=== PATIENT | female | born 2000 | race Hispanic/Latino ===

== ENCOUNTER 2019-08-22 15:05 | Emergency (ER) | payer OTHER ==
[2019-08-22] MEDS ORDERED: LIDOCAINE 1% MPF 5 ML VIAL ONE (16:18)
[2019-08-22] MEDS ORDERED: BUPIVACAINE 0.5% PF 10 ML VIAL ONE (16:19)
[2019-08-22] MEDS ORDERED: NA CHLORIDE 0.9% 1,000 ML ONE (16:19)
[2019-08-22] MEDS ORDERED: FENTANYL CITR 100 MCG/2 ML ONE (16:19)
[2019-08-22 16:34] LABS: Absolute Lymphocytes (CBC) 1.5 K/uL (0.7-4.9); Basophils % 0.3 % (0-1.3); Hematocrit 40.3 % (36.0-45.0); Lymphocytes % 12.6 % (15.3-44.8); MPV 10.9 fL (7.6-11.3); RBC Red Blood Cell Count 4.43 M/uL (3.86-4.86)
[2019-08-22 16:45] LABS: BUN Blood Urea Nitrogen 10 mg/dL (7-18); Bicarbonate 28 mmol/L (21-32); Glucose Level 94 mg/dL (74-106); Potassium 3.8 mmol/L (3.5-5.1); Sodium Level 141 mmol/L (136-145)
[2019-08-22] MEDS ORDERED: LIDOCAINE 1% W/EPI 1:100,000 MDV 20 ML VIAL ONE ×2 (17:01→17:11)
[2019-08-22] MEDS ORDERED: CLINDAMYCIN 900MG/D5W 900 MG/50 ML IVPB IV ONE (17:03)
[2019-08-22] MEDS ORDERED: MORPHINE 2 MG/ML SYR ONE (17:23)
[2019-08-22] MEDS ORDERED: ONDANSETRON 4 MG/2 ML VIAL ONE (17:23)
[2019-08-22 17:47] LABS: Urine Blood NEGATIVE (NEG); Urine Glucose NEGATIVE (NEG); Urine Protein NEGATIVE (NEG); Urine Specific Gravity 1.025 (1.005-1.030)
[2019-08-22] MEDS ORDERED: SMZ./TMP. 800/160 MG TABLET ONE (18:01)
[2019-08-22] MEDS ORDERED: HYDROCODONE/APAP 5/325 MG TAB ONE (18:02)
--- NOTE | 2019-08-22 18:09 | EDPHYS ---
Physician Documentation [facility] Name: Stephy Carolina Age: 18 yrs Sex: Female : 2000 Arrival Date: 08/22/2019 Time: 15:08 Bed 26 Private MD: ED Physician Dmitry Leonard HPI: 08/21 16:15 This 18 yrs old Female presents to ER via Ambulatory with complaints of cp Abscess. 16:15 pain in coccyx area. cp 16:15 Description: pain, tenderness. Onset: The symptoms/episode began/occurred 2 day(s) ago. cp 16:15 Possible cause(s): abscess. Associated signs and symptoms: Pertinent negatives: cp discharge, drainage, erythema, fever, vomiting. Severity of symptoms: in the emergency department the symptoms are actually worse, markedly. 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 - Social history:: Smoking status: Patient denies any tobacco usage or history of. ROS: 16:20 Skin: Positive for of the coccyx area, pain, Negative for injury. cp 16:20 Eyes: Negative for injury, pain, redness, and discharge. cp 16:20 Constitutional: Negative for body aches, chills, fever, poor PO intake. 16:20 Cardiovascular: Negative for chest pain. 16:20 Respiratory: Negative for cough, shortness of breath, wheezing. 16:20 Abdomen/GI: Negative for abdominal pain, nausea, vomiting, and diarrhea. 16:20 Neuro: Negative for weakness. 16:20 All other systems are negative. Exam: 16:30 Constitutional: The patient appears in no acute distress, alert, awake, non-toxic, well cp developed, well nourished, in obvious pain, uncomfortable. 16:30 Head/Face: Normocephalic, atraumatic. cp 16:30 Eyes: Periorbital structures: appear normal, Conjunctiva: normal, no exudate, no injection, Sclera: no appreciated abnormality, Lids and lashes: appear normal, bilaterally. 16:30 ENT: External ear(s): are unremarkable, Nose: is normal, Mouth: is normal, Posterior pharynx: is normal, airway is patent. 16:30 Chest/axilla: Inspection: normal. 16:30 Cardiovascular: Rate: tachycardic, Rhythm: regular. 16:30 Respiratory: the patient does not display signs of respiratory distress, Respirations: normal, no use of accessory muscles, labored breathing, is not present. 16:30 Abdomen/GI: Exam negative for discomfort, distension, guarding, Inspection: abdomen appears normal. 16:30 Skin: Appearance: normal except for affected area, pain in coccyx area. Vital Signs: 15:37 BP 107 / 77; Pulse 114; Resp 16 S; Temp 98.5(TE); Pulse Ox 100% on R/A; Weight 74.84 kg ca1 (M); Height 5 ft. 6 in. (167.64 cm) (R); 17:15 BP 117 / 68; Pulse 98; Resp 20; Pulse Ox 100% on R/A; vc 18:25 BP 109 / 73; Pulse 75; Resp 18; Pulse Ox 98% on R/A; vc 15:37 Body Mass Index 26.63 (74.84 kg, 167.64 cm) ca1 Procedures: 18:05 I \T\ D: Incision and drainage was performed for an abscess of the pilonidal cyst Prepped cp with Betadine, Anesthetized with 8 ccs mixture of 1% lidocaine with epi and 0.5% Marcaine. Incised with #11 blade. Drained large amount purulent fluid. bloody fluid. Cultures obtained. Packed with iodoform gauze, Dressing: sterile 4x4 gauze, the patient tolerated the procedure well. MDM: 16:00 Patient medically screened. cp 18:08 Data reviewed: vital signs, nurses notes, lab test result(s), and as a result, I will cp discharge patient. 18:08 Differential diagnosis: abscess, cellulitis, sepsis. Counseling: I had a detailed cp discussion with the patient and/or guardian regarding: the historical points, exam findings, and any diagnostic results supporting the discharge/admit diagnosis, lab results, the need for outpatient follow up, a general surgeon, to return to the emergency department if symptoms worsen or persist or if there are any questions or concerns that arise at home. Response to treatment: the patient's symptoms have markedly improved after treatment, and as a result, I will discharge patient. 08/21 16:08 Order name: CBC with Diff; Complete Time: 17:54 cp 08/21 17:54 Interpretation: Normal except: WBC 12.2; ANABELL% 78.0; LYM% 12.6; NEUT A 9.5. cp 08/21 16:08 Order name: BMP; Complete Time: 17:54 cp 08/21 17:54 Interpretation: Normal except: CL 109. cp 08/21 16:08 Order name: Wound Culture cp 08/21 16:35 Order name: Urine Dipstick--Ancillary (enter results); Complete Time: 17:54 bd 08/21 16:35 Order name: Urine --Ancillary (enter results); Complete Time: 17:54 bd 08/21 17:55 Interpretation: Reviewed. cp 08/21 16:08 Order name: Urine Dipstick-Ancillary (obtain specimen); Complete Time: 16:40 cp 08/21 16:08 Order name: Urine Test (obtain specimen); Complete Time: 16:40 cp 08/21 16:08 Order name: IV; Complete Time: 16:40 cp 08/21 16:08 Order name: I\T\D Setup; Complete Time: 16:39 cp Administered Medications: 16:20 Drug: NS 0.9% 1000 ml Route: IV; Rate: 1 bolus; Site: left antecubital; vc 19:38 Follow up: IV Status: Completed infusion; IV Intake: 1000ml vc 16:20 Drug: fentaNYL (PF) 25 mcg Route: IVP; Site: left antecubital; vc 17:00 Follow up: Response: No adverse reaction vc 17:15 Drug: Marcaine (0.5 %) 10 ml Volume: 10 ml; Route: Infiltration; vc 18:00 Follow up: Response: No adverse reaction vc 17:25 Drug: morphine 2 mg Route: IVP; Site: left antecubital; vc 18:00 Follow up: Response: No adverse reaction vc 17:25 Drug: Zofran (Ondansetron) 4 mg Route: IVP; Site: left antecubital; vc 18:30 Follow up: Response: No adverse reaction vc 17:30 Drug: Clindamycin 900 mg Route: IVPB; Infused Over: 30 mins; Site: left antecubital; vc 18:00 Drug: Bactrim (160 mg-800 mg (DS) 2 tablet Route: PO; vc 18:30 Follow up: Response: No adverse reaction vc 18:01 Drug: Jackson 5 mg-325 mg 1 tabs Route: PO; vc 18:30 Follow up: Response: No adverse reaction vc 19:39 Not Given (Other Intervention Used): Lidocaine-Epinephrine -1%: (1:100,000) 10 ml 20 ml vc Infiltration once; to bedside Disposition: 08/22 06:20 Co-signature as Attending Physician, Dmitry Leonard MD I agree with the assessment and tw4 plan of care. Disposition: 08/22/19 18:09 Discharged to Home. Impression: Pilonidal cyst with abscess. - Condition is Stable. - Discharge Instructions: Incision and Drainage, Pilonidal Cyst, Incision and Drainage of a Pilonidal Cyst, Care After. - Prescriptions for Clindamycin HCl 300 mg Oral Capsule - take 1 capsule by ORAL route every 6 hours for 10 days; 40 capsule. Tylenol- Codeine #3 300-30 mg Oral Tablet - take 2 tablets by ORAL route every 8 hours As needed; 20 tablet. Bactrim DS 800- 160 mg Oral Tablet - take 1 tablet by ORAL route every 12 hours for 10 days; 20 tablet. - Medication Reconciliation Form, Thank You Letter, Antibiotic Education, Prescription Opioid Use form. - Follow up: Pratik Pinto MD; When: Tomorrow; Reason: Wound Recheck. Follow up: Pratik Pinto MD; When: 1 - 2 days; Reason: Wound Recheck. - Problem is new. - Symptoms have improved. Signatures: Dispatcher [employer] EDMS Nate Medina PA PA cp Wadley, Terrence, MD MD tw4 Radha Rinaldi RN RN ca1 Jenna Lewis RN RN vc Corrections: (The following items were deleted from the chart) 08/21 18:41 18:09 08/22/2019 18:09 Discharged to Home. Impression: Pilonidal cyst with abscess. vc Condition is Stable. Forms are Medication Reconciliation Form, Thank You Letter, Antibiotic Education, Prescription Opioid Use. Follow up: Pratik Pinto; When: 1 - 2 days; Reason: Wound Recheck. Problem is new. Symptoms have improved. cp
--- NOTE | 2019-08-22 18:09 | ER ---
Nurse's Notes [facility] Name: Stephy Carolina Age: 18 yrs Sex: Female : 2000 Arrival Date: 08/22/2019 Time: 15:08 Bed 26 Private MD: Diagnosis: Pilonidal cyst with abscess Presentation: 08/21 15:37 Chief complaint: Patient states: Abscess at the buttocks since Wednesday. Coronavirus ca1 screen: The patient has NOT traveled to [place] in the past 14 days. The patient has NOT had contact with known and/or suspected case of Coronavirus. Ebola Screen: Patient negative for fever greater than or equal to 101.5 degrees Fahrenheit, and additional compatible Ebola Virus Disease symptoms Patient denies exposure to infectious person. Patient denies travel to an Ebola-affected area in the 21 days before illness onset. No symptoms or risks identified at this time. Initial Sepsis Screen: Does the patient meet any 2 criteria? No. Patient's initial sepsis screen is negative. Does the patient have a suspected source of infection? No. Patient's initial sepsis screen is negative. Risk Assessment: Do you want to hurt yourself or someone else? Patient reports no desire to harm self or others. Onset of symptoms was August 22, 2019. 15:37 Method Of Arrival: Ambulatory ca1 15:37 Acuity: MERI 4 ca1 Triage Assessment: 17:00 General: Appears in no apparent distress. uncomfortable, Behavior is calm, cooperative, vc appropriate for age. Pain: Complains of pain in upper gluteal cleft. 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 - Social history:: Smoking status: Patient denies any tobacco usage or history of. Screenin:00 Abuse screen: Denies threats or abuse. Nutritional screening: No deficits noted. vc Tuberculosis screening: No symptoms or risk factors identified. Fall Risk None identified. Assessment: 16:15 General: Appears in no apparent distress. uncomfortable, Behavior is cooperative, vc appropriate for age, crying. Pain: Complains of pain in gluteal cleft. Neuro: Level of Consciousness is awake, alert, obeys commands, Oriented to person, place, time, situation. Cardiovascular: Capillary refill < 3 seconds Patient's skin is warm and dry. Respiratory: Airway is patent Respiratory effort is even, unlabored, Respiratory pattern is regular, symmetrical. GI: No signs and/or symptoms were reported involving the gastrointestinal system. : No signs and/or symptoms were reported regarding the genitourinary system. EENT: No signs and/or symptoms were reported regarding the EENT system. Derm: Wound noted gluteal cleft. Musculoskeletal: Circulation, motion, and sensation intact. Range of motion: intact in all extremities. 17:30 Reassessment: Patient and/or family updated on plan of care and expected duration. Pain vc level reassessed. Patient states symptoms have not improved. 18:30 Reassessment: Patient and/or family updated on plan of care and expected duration. Pain vc level reassessed. Patient states feeling better. Patient states symptoms have improved. Vital Signs: 15:37 BP 107 / 77; Pulse 114; Resp 16 S; Temp 98.5(TE); Pulse Ox 100% on R/A; Weight 74.84 kg ca1 (M); Height 5 ft. 6 in. (167.64 cm) (R); 17:15 BP 117 / 68; Pulse 98; Resp 20; Pulse Ox 100% on R/A; vc 18:25 BP 109 / 73; Pulse 75; Resp 18; Pulse Ox 98% on R/A; vc 15:37 Body Mass Index 26.63 (74.84 kg, 167.64 cm) ca1 ED Course: 15:08 Patient arrived in ED. mr 15:39 Triage completed. ca1 15:41 Arm band placed on right wrist. ca1 15:44 Nate Medina PA is PHCP. cp 15:44 Dmitry Leonard MD is Attending Physician. cp 15:58 Jenna Lewis RN is Primary Nurse. vc 18:08 Pratik Pinto MD is Referral Physician. cp 18:08 Referral Physician role handed off by Pratik Pinto MD cp 18:08 Pratik Pinto MD is Referral Physician. cp 18:34 Assist provider with I \T\ D: of an abscess on Upper gluteal cleft Set up I\T\D tray. vc Performed by Nate CORTES Culture sent to lab. Wound packed. iodoform gauze, Dressing with 4X4s, Patient tolerated well. 18:36 Patient has correct armband on for positive identification. Bed in low position. Call vc light in reach. Side rails up X 1. 18:36 IV discontinued, intact, bleeding controlled, No redness/swelling at site. Pressure vc dressing applied. Administered Medications: 16:20 Drug: NS 0.9% 1000 ml Route: IV; Rate: 1 bolus; Site: left antecubital; vc 19:38 Follow up: IV Status: Completed infusion; IV Intake: 1000ml vc 16:20 Drug: fentaNYL (PF) 25 mcg Route: IVP; Site: left antecubital; vc 17:00 Follow up: Response: No adverse reaction vc 17:15 Drug: Marcaine (0.5 %) 10 ml Volume: 10 ml; Route: Infiltration; vc 18:00 Follow up: Response: No adverse reaction vc 17:25 Drug: morphine 2 mg Route: IVP; Site: left antecubital; vc 18:00 Follow up: Response: No adverse reaction vc 17:25 Drug: Zofran (Ondansetron) 4 mg Route: IVP; Site: left antecubital; vc 18:30 Follow up: Response: No adverse reaction vc 17:30 Drug: Clindamycin 900 mg Route: IVPB; Infused Over: 30 mins; Site: left antecubital; vc 18:00 Drug: Bactrim (160 mg-800 mg (DS) 2 tablet Route: PO; vc 18:30 Follow up: Response: No adverse reaction vc 18:01 Drug: Cullen 5 mg-325 mg 1 tabs Route: PO; vc 18:30 Follow up: Response: No adverse reaction vc 19:39 Not Given (Other Intervention Used): Lidocaine-Epinephrine -1%: (1:100,000) 10 ml 20 ml vc Infiltration once; to bedside Intake: 19:38 IV: 1000ml; Total: 1000ml. vc Outcome: 18:09 Discharge ordered by . pat 18:35 Discharged to home ambulatory, with friend. vc 18:35 Condition: improved 18:35 Discharge instructions given to patient, friend, Instructed on discharge instructions, follow up and referral plans. medication usage, Demonstrated understanding of instructions, follow-up care, medications, Prescriptions given X 3. 18:41 Patient left the ED. vc Signatures: Bela Chavarria mr Carol, SOPHIA Sullivan cp, Cheryl RN RN ca1 Jenna Lewis RN RN vc
[2019-08-22 19:36] VITALS: TEMP 98.5
[2019-08-22 19:41] VITALS: BP 109/73; O2SAT 98
== END 2019-08-22 18:41 | disposition home or self-care (01) ==
LOC: ER 15:05
PROC: 0H98XZZ Drainage of Buttock Skin, External Approach (ICD-10-PCS; principal; 2019-08-22)
DX: L05.01 Pilonidal cyst with abscess (principal)
CPT/HCPCS: 96361; 87070; 85025; 80048; 36415; 87205; 81025; 81003; 96375; 96374; 99284; 10080; J3010; J2270; J7030; J2405

== ENCOUNTER 2019-10-09 20:27 | Emergency (ER) | payer OTHER ==
[2019-10-09] MEDS ORDERED: NA CHLORIDE 0.9% 1,000 ML ONE (20:48)
[2019-10-09 20:58] LABS: Absolute Lymphocytes (CBC) 2.3 K/uL (0.7-4.9); Basophils % 0.4 % (0-1.3); Hematocrit 40.3 % (36.0-45.0); Lymphocytes % 23.2 % (15.3-44.8); MPV 10.7 fL (7.6-11.3); RBC Red Blood Cell Count 4.48 M/uL (3.86-4.86)
[2019-10-09 21:07] LABS: Urine Bacteria 20-50 /HPF (<20); Urine Culture Reflex Order REFLEXED; Urine Mucus 2+ /HPF (NONE SEEN)
[2019-10-09 21:08] LABS: Urine Blood TRACE (NEG); Urine Glucose NEGATIVE (NEG); Urine Protein NEGATIVE (NEG); Urine Specific Gravity 1.025 (1.005-1.030)
[2019-10-09 21:16] LABS: ALT/SGPT 15 U/L (12-78); AST/SGOT 8 U/L (15-37); Alkaline Phosphatase 77 U/L (45-117); BUN Blood Urea Nitrogen 19 mg/dL (7-18); Bicarbonate 26 mmol/L (21-32); Bilirubin Direct 0.1 mg/dL (0-0.2); Bilirubin Total 0.2 mg/dL (0.2-1.0); Glucose Level 78 mg/dL (74-106); Lipase 139 U/L (73-393); Sodium Level 144 mmol/L (136-145)
[2019-10-09] MEDS ORDERED: CEFTRIAXONE/SWI 1gm 1 GM/10 ML SYR ONE (21:23)
--- NOTE | 2019-10-09 21:49 | RAD REPORT ---
EXAM DESCRIPTION: CT - Abdomen Pelvis W Contrast - 10/09/2019 9:35 pm CLINICAL HISTORY: Abdominal pain COMPARISON: none. TECHNIQUE: Computed axial tomography of the abdomen pelvis was obtained. 100 cc Isovue-300 was admin istered intravenously. Oral contrast was not requested which limits evaluation of bowel. All CT scans are performed using dose optimization technique as appropriate and may include automated exposure control or mA/KV adjustment according to patient size. FINDINGS: The liver, spleen, pancreas, adrenal and kidneys appear unremarkable. There is no evidence of diverticulitis. Normal appendix An irregularly-shaped 14 millimeter right ovarian follicle likely has recently ruptured. No significa nt free fluid IMPRESSION: An irregularly-shaped 14 millimeter right ovarian follicle likely has recently ruptured. No significant free fluid
--- NOTE | 2019-10-09 22:05 | ER ---
Nurse's Notes [facility] Name: Stephy Carolina Age: 19 yrs Sex: Female : 2000 Arrival Date: 10/09/2019 Time: 20:30 Bed 5 Private MD: Diagnosis: Urinary tract infection, site not specified Presentation: 10/08 20:40 Chief complaint: Patient states: Bilateral low back pain since 10/02. Slight dysuria ll1 since. Denies N/V/D. Coronavirus screen: Proceed with normal triage. Patient denies a cough. Patient denies shortness of breath or difficulty breathing. Patient denies measured and/or subjective temperature greater than 100.4F prior to today's visit. Patient denies travel on a cruise ship or to a country the [facility] currently lists as an affected area. Patient denies contact with known and/or suspected case of COVID-19. Ebola Screen: Patient denies travel to an Ebola-affected area in the 21 days before illness onset. Initial Sepsis Screen: Does the patient meet any 2 criteria? No. Patient's initial sepsis screen is negative. Risk Assessment: Do you want to hurt yourself or someone else? Patient reports no desire to harm self or others. Onset of symptoms was October 03, 2019. 20:40 Method Of Arrival: Ambulatory ll1 20:40 Acuity: MERI 3 ll1 20:53 Initial Sepsis Screen: Does the patient have a suspected source of infection? No. ea Patient's initial sepsis screen is negative. Historical: - Allergies: 20:43 No Known Allergies; ll1 - PMHx: 20:43 None; ll1 - PSHx: 20:43 None; ll1 - Immunization history:: Adult Immunizations up to date. - Social history:: Smoking status: Patient denies any tobacco usage or history of. Patient/guardian denies using alcohol, street drugs, tobacco products. Screenin:53 Abuse screen: Denies threats or abuse. Nutritional screening: No deficits noted. ea Tuberculosis screening: No symptoms or risk factors identified. Fall Risk Assessment: 20:54 General: Appears in no apparent distress. Behavior is calm, cooperative, appropriate ea for age. Pain: Pain does not radiate. Neuro: Level of Consciousness is awake, alert, obeys commands, Oriented to person, place, time. Respiratory: Airway is patent Respiratory effort is even, unlabored, Respiratory pattern is regular, symmetrical. GI: Reports lower abdominal pain. Derm: Skin is pink, warm \T\ dry. 21:23 Reassessment: Patient and/or family updated on plan of care and expected duration. Pain ea level reassessed. Patient is alert, oriented x 3, equal unlabored respirations, skin warm/dry/pink. 22:15 Reassessment: Patient and/or family updated on plan of care and expected duration. Pain ea level reassessed. Patient is alert, oriented x 3, equal unlabored respirations, skin warm/dry/pink. Discharge instruction given to patient, verbalized the understanding of instruction. Pt left ED ambulatory accompanied by family. Vital Signs: 20:40 BP 135 / 87; Pulse 75; Resp 16; Temp 98.4; Pulse Ox 100% ; Pain 7/10; ll1 21:50 BP 121 / 67; Pulse 68; Resp 18; Pulse Ox 99% on R/A; ea ED Course: 20:30 Patient arrived in ED. cf2 20:32 Austin Graham NP is PHCP. pm1 20:32 Berkley Apodaca MD is Attending Physician. pm1 20:41 Lela Wheat RN is Primary Nurse. ea 20:42 Triage completed. ll1 20:43 Arm band placed on Patient placed in an exam room, on a stretcher. ll1 20:48 Inserted saline lock: 20 gauge in right antecubital area, using aseptic technique. ea Blood collected. 20:53 Patient has correct armband on for positive identification. Bed in low position. Call ea light in reach. Side rails up X 1. 21:35 CT Abd/Pelvis - IV Contrast Only In Process Unspecified. EDMS 22:06 No provider procedures requiring assistance completed. ea 22:16 IV discontinued, intact, bleeding controlled, No redness/swelling at site. Pressure ea dressing applied. Administered Medications: 20:49 Drug: NS 0.9% 1000 ml Route: IV; Rate: 1000 ml; Site: right antecubital; ah 22:00 Follow up: Response: No adverse reaction; IV Status: Completed infusion; IV Intake: ea 1000ml 21:19 Drug: Rocephin 1 grams Route: IV; Rate: calculated rate; Site: right antecubital; ea 22:00 Follow up: Response: No adverse reaction; IV Status: Completed infusion ea 22:03 Drug: TORadol 30 mg Route: IVP; Site: right antecubital; ea 22:17 Follow up: Response: Medication administered at discharge. ea Intake: 22:00 IV: 1000ml; Total: 1000ml. ea Outcome: 22:05 Discharge ordered by MD. pm1 22:16 Discharged to home ambulatory. ea 22:16 Condition: stable 22:16 Discharge instructions given to patient, Instructed on discharge instructions, follow up and referral plans. medication usage, Demonstrated understanding of instructions, follow-up care, medications, Prescriptions given X 2. 22:16 Patient left the ED. ea Signatures: Dispatcher [employer] EDMS Austin Graham NP TV PRODUCTION ASSISTANT pm1 Lela Wheat, RN RN Jose Daniel Walters cf2 Josephine Wilkinson, RN RN Kavon Bess RN RN ll1
[2019-10-09] MEDS ORDERED: KETOROLAC 30 MG/ML INJ ONE (22:06)
--- NOTE | 2019-10-09 22:06 | EDPHYS ---
Physician Documentation [facility] Name: Stephy Carolina Age: 19 yrs Sex: Female : 2000 Arrival Date: 10/09/2019 Time: 20:30 Bed 5 Private MD: ED Physician Berkley Apodaca HPI: 10/08 20:46 This 19 yrs old Female presents to ER via Ambulatory with complaints of Pain pm1 With Urination, Abdominal Pain, Back Pain. 20:46 The patient presents with urinary symptoms, burning with urination . Onset: The pm1 symptoms/episode began/occurred 6 day(s) ago. Modifying factors: The symptoms are alleviated by nothing, the symptoms are aggravated by nothing. Associated signs and symptoms: Pertinent positives: bilateral flank pain. Worse on the right, Pertinent negatives: diarrhea, fever, nausea, vomiting, Denies abdominal pain. Severity of symptoms: in the emergency department the symptoms are actually worse. The patient has not experienced similar symptoms in the past. The patient has not recently seen a physician. Historical: - Allergies: 20:43 No Known Allergies; ll1 - PMHx: 20:43 None; ll1 - PSHx: 20:43 None; ll1 - Immunization history:: Adult Immunizations up to date. - Social history:: Smoking status: Patient denies any tobacco usage or history of. Patient/guardian denies using alcohol, street drugs, tobacco products. ROS: 20:46 Positive for burning with urination, Negative for vaginal bleeding, vaginal pm1 discharge. 20:46 Constitutional: Negative for fever, chills, and weight loss. 20:46 Cardiovascular: Negative for chest pain, palpitations, and edema, Respiratory: Negative for shortness of breath, cough, wheezing, and pleuritic chest pain, Abdomen/GI: Negative for abdominal pain, nausea, vomiting, diarrhea, and constipation. 20:46 MS/Extremity: Negative for injury and deformity, Skin: Negative for injury, rash, and discoloration. 20:46 Neuro: Negative for headache, weakness, numbness, tingling, and seizure. 20:46 Back: Positive for flank pain, bilaterally. Exam: 20:46 Constitutional: This is a well developed, well nourished patient who is awake, alert, pm1 and in no acute distress. Head/Face: Normocephalic, atraumatic. Chest/axilla: Normal chest wall appearance and motion. Nontender with no deformity. No lesions are appreciated. 20:46 Abdomen/GI: Soft, non-tender, No guarding or rebound. No evidence of tenderness throughout. 20:46 Skin: Warm, dry with normal turgor. Normal color with no rashes, no lesions, and no evidence of cellulitis. MS/ Extremity: Pulses equal, no cyanosis. Neurovascular intact. Full, normal range of motion. 20:46 Cardiovascular: Exam negative for acute changes, Rate: normal, Rhythm: regular, Pulses: no pulse deficits are appreciated, Edema: is not appreciated. 20:46 Respiratory: Exam negative for acute changes, respiratory distress, shortness of breath. 20:46 Back: normal spinal alignment noted, CVA tenderness, that is mild, is noted on the right. 20:46 Neuro: Exam negative for acute changes, Orientation: is normal, Mentation: is normal, Motor: moves all fours. Vital Signs: 20:40 BP 135 / 87; Pulse 75; Resp 16; Temp 98.4; Pulse Ox 100% ; Pain 7/10; ll1 21:50 BP 121 / 67; Pulse 68; Resp 18; Pulse Ox 99% on R/A; ea MDM: 20:34 Patient medically screened. pm1 22:04 Data reviewed: vital signs. Data interpreted: Pulse oximetry: on room air is 100 %. pm1 Interpretation: normal. Counseling: I had a detailed discussion with the patient and/or guardian regarding: the historical points, exam findings, and any diagnostic results supporting the discharge/admit diagnosis, lab results, radiology results, the need for outpatient follow up, to return to the emergency department if symptoms worsen or persist or if there are any questions or concerns that arise at home. 10/08 20:40 Order name: Basic Metabolic Panel pm1 10/08 20:40 Order name: CBC with Diff; Complete Time: 21:03 pm1 10/08 20:40 Order name: Hepatic Function; Complete Time: 21:21 pm1 10/08 20:40 Order name: Lipase; Complete Time: 21:21 pm1 10/08 20:40 Order name: Urine Microscopic Only; Complete Time: 21:15 pm1 10/08 20:41 Order name: Basic Metabolic Panel; Complete Time: 21:21 EDMS 10/08 20:44 Order name: CT Abd/Pelvis - IV Contrast Only; Complete Time: 21:59 pm1 10/08 21:00 Order name: Urine Dipstick--Ancillary (enter results); Complete Time: 21:15 mw2 10/08 21:00 Order name: Urine --Ancillary (enter results); Complete Time: 21:15 [facility] 10/08 21:09 Order name: Urine Culture [facility] 10/08 20:40 Order name: IV Saline Lock; Complete Time: 20:52 pm1 10/08 20:40 Order name: Labs collected and sent; Complete Time: 20:52 pm1 10/08 20:40 Order name: Urine Dipstick-Ancillary (obtain specimen); Complete Time: 20:52 pm1 10/08 20:40 Order name: Urine Test (obtain specimen); Complete Time: 20:52 pm1 Administered Medications: 20:49 Drug: NS 0.9% 1000 ml Route: IV; Rate: 1000 ml; Site: right antecubital; 22:00 Follow up: Response: No adverse reaction; IV Status: Completed infusion; IV Intake: ea 1000ml 21:19 Drug: Rocephin 1 grams Route: IV; Rate: calculated rate; Site: right antecubital; ea 22:00 Follow up: Response: No adverse reaction; IV Status: Completed infusion ea 22:03 Drug: TORadol 30 mg Route: IVP; Site: right antecubital; ea 22:17 Follow up: Response: Medication administered at discharge. ea Disposition: 10/09 19:50 Co-signature as Attending Physician, Berkley Apodaca MD. ma2 Disposition: 10/09/19 22:05 Discharged to Home. Impression: Urinary tract infection, site not specified. - Condition is Stable. - Discharge Instructions: Urinary Tract Infection, Adult. - Prescriptions for Macrobid 100 mg Oral Capsule - take 1 capsule by ORAL route every 12 hours for 10 days; 20 capsule. Tylenol- Codeine #3 300-30 mg Oral Tablet - take 2 tablets by ORAL route every 6 hours As needed; 20 tablet. - Medication Reconciliation Form, Thank You Letter, Antibiotic Education, Prescription Opioid Use form. - Follow up: Emergency Department; When: As needed; Reason: Worsening of condition. Follow up: Private Physician; When: 2 - 3 days; Reason: Recheck today's complaints, Continuance of care, Re-evaluation by your physician. - Problem is new. - Symptoms have improved. Signatures: Dispatcher [employer] [facility] Austin Graham, ADOLFO RIBBON BLOCKER pm1 Lela Wheat, RN RN Berkley Gray MD MD ma2 Josephine Wilkinson RN RN Kavon Barraza RN RN ll1 Corrections: (The following items were deleted from the chart) 10/08 20:47 20:41 Stone Protocol+CT.RAD.BRZ ordered. [facility] 22:16 22:05 10/09/2019 22:05 Discharged to Home. Impression: Urinary tract infection, site ea not specified. Condition is Stable. Forms are Medication Reconciliation Form, Thank You Letter, Antibiotic Education, Prescription Opioid Use. Follow up: Emergency Department; When: As needed; Reason: Worsening of condition. Follow up: Private Physician; When: 2 - 3 days; Reason: Recheck today's complaints, Continuance of care, Re-evaluation by your physician. Problem is new. Symptoms have improved. pm1
[2019-10-09 22:23] VITALS: TEMP 98.4
[2019-10-09 22:24] VITALS: BP 121/67; O2SAT 99
== END 2019-10-09 22:16 | disposition home or self-care (01) ==
LOC: ER 20:27
DX: N39.0 Urinary tract infection, site not specified (principal)
CPT/HCPCS: 87088; 85025; 87086; 80048; 36415; 81025; 80076; 83690; 74177; Q9967; J0696; J7030; 81003; 81015; 96365; 96375; 99284

== ENCOUNTER 2024-04-02 11:17 | Emergency (ER) | payer SELFPAY ==
[2024-04-02] MEDS ORDERED: NA CHLORIDE 0.9% 1,000 ML ONE (12:10)
[2024-04-02] MEDS ORDERED: FAMOTIDINE 20 MG/2 ML VIAL IV ONE (12:10)
[2024-04-02 12:16] LABS: Absolute Basophils 0.1 K/uL (0-0.5); Absolute Eosinophils 0.1 K/uL (0-0.5); Absolute Lymphocytes (CBC) 1.8 K/uL (0.7-4.9); Absolute Monocytes 0.5 K/uL (0.1-1.3); Absolute Neutrophil 2.8 K/uL (1.8-8.0); Basophils % 1.1 % (0-1.3); Eosinophils % 1.4 % (0-4.4); Hematocrit 39.3 % (36.0-45.0); Lymphocytes % 34.3 % (15.3-44.8); MCH 29.4 pg (27.0-35.0); MCV 89.2 fL (80-100); MPV 10.3 fL (7.6-11.3); Monocytes % 9.4 % (3.3-12.3); Neutrophils % 53.8 % (41.7-73.7); Nucleated Red Blood Cells % 0.1 % (0-0); Platelets 212 thou/uL (152-406); RBC Red Blood Cell Count 4.41 M/uL (3.86-4.86); Red Cell Distribution Width 12.9 % (12.1-15.2)
[2024-04-02 12:20] LABS: Specific Gravity 1.012 (1.005-1.030)
[2024-04-02 12:22] LABS: Specific Gravity 1.012 (1.005-1.030); Sqamous Epithelial <5 /HPF (None Seen); Urine Bacteria None Seen /HPF (<20); Urine Bilirubin NEGATIVE (Negative); Urine Blood Negative (Negative); Urine Clarity Turbid (Clear); Urine Color Colorless (Yellow); Urine Culture Reflex Order NOT NEEDED; Urine Glucose NEGATIVE (Negative); Urine Ketones NEGATIVE (Negative); Urine Microscopic Reflex YN ORDER UMIC; Urine Mucus 1+ /HPF (None Seen); Urine Nitrite NEGATIVE (Negative); Urine Protein NEGATIVE (Negative); Urine RBC None Seen /HPF (None Seen); Urine Urobilinogen Normal (Normal); Urine WBC <5 /HPF (<5)
[2024-04-02 12:49] LABS: Albumin 3.8 g/dL (3.4-5.0); Albumin/Globulin Ratio 1.1 (1.1-1.8); Anion Gap 7.8 mEq/L (5.0-15.0); Bilirubin Total 0.4 mg/dL (0.2-1.0); Globulin 3.6 g/dL (2.3-3.5); Potassium 3.8 mEq/L (3.5-5.1); Protein, Total 7.4 g/dL (6.4-8.2)
--- NOTE | 2024-04-02 13:37 | RAD REPORT ---
EXAMINATION: CT ABDOMEN AND PELVIS WITH CONTRAST CLINICAL INDICATION: Abdominal pain TECHNIQUE: CT abdomen and pelvis was performed, after the administration of 100 cc Isovue-300.. Sagit jennifer and coronal reconstructions were obtained. One or more of the following dose reduction techniques were used: Automated exposure control, adjustment of the mA and kV according to patient si ze, and iterative reconstruction. Unless otherwise specified, incidental findings do not require dedicated imaging follow-up. [id number]. Oral contrast was not given which limits evaluation of bowel and appendix. COMPARISON: 2019 FINDINGS: The liver, spleen, pancreas, adrenals and kidneys appear unremarkable There is no evidence of diverticulitis Normal appendix. No adnexal mass : IMPRESSION: No acute abnormalities displayed
--- NOTE | 2024-04-02 13:48 | ER ---
Nurse's Notes [facility] Name: Stephy Chong Age: 23 yrs Sex: Female : 2000 Arrival Date: 04/02/2024 Time: 11:17 Bed 19 Private MD: Diagnosis: Rectal bleeding Presentation: 04/02 11:25 Chief complaint: Patient states: Bright red rectal bleeding since . Slight ll1 cramping. Coronavirus screen: Client denies travel out of the [place] in the last 14 days. At this time, the client does not indicate any symptoms associated with coronavirus-19. Ebola Screen: Patient denies travel to an Ebola-affected area in the 21 days before illness onset. Initial Sepsis Screen: Does the patient meet any 2 criteria? No. Patient's initial sepsis screen is negative. Does the patient have a suspected source of infection? No. Patient's initial sepsis screen is negative. Risk Assessment: Do you want to hurt yourself or someone else? Patient reports no desire to harm self or others. Onset of symptoms was March 30, 2024. 11:25 Method Of Arrival: Ambulatory ll1 11:25 Acuity: MERI 3 ll1 Triage Assessment: 11:27 General: Appears uncomfortable, Behavior is cooperative, appropriate for age, anxious. ll1 Pain: Denies pain. GI: Reports cramping, rectal bleeding. 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 - Infectious Disease History:: Denies. - Social history:: Smoking status: Reported history of juuling and/or vaping. Patient denies any tobacco usage or history of. Screenin:50 [facility] ED Fall Risk Assessment (Adult) History of falling in the last 3 months, me1 including since admission No falls in past 3 months (0 pts) Confusion or Disorientation No (0 pts) Intoxicated or Sedated No (0 pts) Impaired Gait No (0 pts) Mobility Assist Device Used No (0 pt) Altered Elimination No (0 pt) Score/Fall Risk Level 0 - 2 = Low Risk Maintained a safe environment, Provided non-skid footwear, Hourly rounding (assess needs \T\ fall precautionary measures) done. Abuse screen: Denies threats or abuse. Nutritional screening: No deficits noted. Tuberculosis screening: No symptoms or risk factors identified. Assessment: 11:50 General: Appears comfortable, well groomed, well developed, well nourished, Behavior is me1 calm, cooperative, appropriate for age, Reports bright red rectal bleeding since . Pain: Denies pain. Neuro: Level of Consciousness is awake, alert, obeys commands, Oriented to person, place, time, situation, Appropriate for age. Cardiovascular: Patient's skin is warm and dry. Respiratory: Airway is patent Respiratory effort is even, unlabored, Respiratory pattern is regular, symmetrical. GI: Reports rectal bleeding. : No signs and/or symptoms were reported regarding the genitourinary system. EENT: No signs and/or symptoms were reported regarding the EENT system. Derm: Skin is intact, is healthy with good turgor, Skin is pink, warm \T\ dry. Musculoskeletal: No signs and/or symptoms reported regarding the musculoskeletal system. Vital Signs: 11:25 BP 135 / 74; Pulse 79; Resp 16; Temp 97.4; Pulse Ox 100% ; Weight 73.94 kg; Height 5 ll1 ft. 7 in. ; Pain 0/10; 12:00 BP 116 / 73; Pulse 67; Resp 18; Pulse Ox 97% ; me1 13:00 BP 109 / 72; Pulse 69; Resp 16; Pulse Ox 97% ; me1 13:45 BP 112 / 81; Pulse 64; Resp 18; Temp 98.2; Pulse Ox 100% ; me1 11:25 Body Mass Index 25.53 (73.94 kg, 170.18 cm) ll1 11:25 Pain Scale: Adult ll1 ED Course: 11:20 Patient arrived in ED. mg5 11:20 Paris Rivera FNP-C is PHCP. kb 11:20 Jarret Retana MD is Attending Physician. kb 11:27 Paris Rivera FNP-C is PHCP. kb 11:27 Triage completed. ll1 11:27 Arm band placed on Patient placed in an exam room, on a stretcher. ll1 11:30 Melissa Clay, RN is Primary Nurse. me1 11:50 Patient has correct armband on for positive identification. Bed in low position. Call me1 light in reach. Side rails up X2. Provided Education on: POC. Verbalized understanding.. Client placed on continuous cardiac and pulse oximetry monitoring. NIBP monitoring applied. Pulse ox on. NIBP on. 11:50 No provider procedures requiring assistance completed. me1 12:08 CBC with Diff Sent. me1 12:08 CMP Sent. me1 12:08 Lipase Sent. me1 12:08 Test, Urine Sent. me1 12:08 Urinalysis w/ reflexes Sent. me1 12:08 Initial lab(s) drawn, by ok, sent to lab. Urine collected: clean catch specimen, clear. me1 Inserted saline lock: 22 gauge in right antecubital area, using aseptic technique. 13:24 CT Abd/Pelvis - IV Contrast Only In Process Unspecified. EDMS 14:01 IV discontinued, intact, bleeding controlled, No redness/swelling at site. Pressure me1 dressing applied. Administered Medications: 12:16 Drug: Famotidine IVP 20 mg IVP once; dilute with 10 mL 0.9% NaCl; give over 2 minutes me1 Route: IVP; Site: right antecubital; 12:57 Follow up: Response: No adverse reaction me1 12:16 Drug: NS 0.9% IV 1000 ml IV at 1 bolus Per protocol; to be given as a bolus over 60 me1 minutes Route: IV; Rate: 1 bolus; Site: right antecubital; 14:02 Follow up: Response: No adverse reaction; IV Status: Completed infusion; IV Intake: me1 1000ml Medication: 11:50 VIS not applicable for this client. me1 Intake: 14:02 IV: 1000ml; Total: 1000ml. me1 Outcome: 13:48 Discharge ordered by MD. marie 14:01 Discharged to home ambulatory, with friend, me1 14:01 Condition: stable 14:01 Discharge instructions given to patient, significant other, Instructed on discharge instructions, follow up and referral plans. medication usage, Demonstrated understanding of instructions, follow-up care, medications, Prescriptions given X 1, 14:02 Patient left the ED. ok1 Signatures: Dispatcher [employer] EDMS Paris Rivera, ENGRAVING SUPERVISOR-C ENGRAVING SUPERVISOR-Kavon Schmidt, RN RN ll1 Melissa Clay, RN RN me1 Wilder, Elisa mg5
--- NOTE | 2024-04-02 13:48 | EDPHYS ---
Physician Documentation [facility] Name: Stephy Chong Age: 23 yrs Sex: Female : 2000 Arrival Date: 04/02/2024 Time: 11:17 Bed 19 Private MD: ED Physician Jarret Retana HPI: 04/02 14:13 This 23 yrs old Female presents to ER via Ambulatory with complaints of Rectal kb Bleeding. 14:13 PT is a 23 year old female who presents for rectal bleeding that started today. States kb she went to urgent care and was told she could have colon cancer so she came in for evaluation. Denies n/v/d, abd pain. 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 - Infectious Disease History:: Denies. - Social history:: Smoking status: Reported history of juuling and/or vaping. Patient denies any tobacco usage or history of. ROS: 14:12 Constitutional: As per HPI kb Exam: 14:12 Constitutional: This is a well developed, well nourished patient who is awake, alert, kb and in no acute distress. Head/Face: Normocephalic, atraumatic. ENT: Moist Mucous membranes Cardiovascular: Regular rate Respiratory: Respirations even and unlabored. No increased work of breathing. Talking in full sentences Skin: Warm, dry with normal turgor. Normal color. MS/ Extremity: Pulses equal, no cyanosis. Neurovascular intact. Full, normal range of motion. Neuro: Awake and alert, GCS 15, oriented to person, place, time, and situation. Moves all extremities. Normal gait. 14:12 Abdomen/GI: Inspection: abdomen appears normal, Bowel sounds: normal, Palpation: soft, in all quadrants, mild abdominal tenderness, in the left lower quadrant, 17:11 Abdomen/GI: Rectal exam: is unremarkable, kb Vital Signs: 11:25 BP 135 / 74; Pulse 79; Resp 16; Temp 97.4; Pulse Ox 100% ; Weight 73.94 kg; Height 5 ll1 ft. 7 in. ; Pain 0/10; 12:00 BP 116 / 73; Pulse 67; Resp 18; Pulse Ox 97% ; me1 13:00 BP 109 / 72; Pulse 69; Resp 16; Pulse Ox 97% ; me1 13:45 BP 112 / 81; Pulse 64; Resp 18; Temp 98.2; Pulse Ox 100% ; me1 11:25 Body Mass Index 25.53 (73.94 kg, 170.18 cm) ll1 11:25 Pain Scale: Adult ll1 MDM: 11:27 Patient medically screened. kb 14:12 Differential diagnosis: hemorrhoids, fissure, gi bleed, colitis. Data reviewed: vital kb signs, nurses notes. 04/02 11:36 Order name: CBC with Diff; Complete Time: 12:20 kb 04/02 11:36 Order name: CMP; Complete Time: 12:52 kb 04/02 11:36 Order name: Lipase; Complete Time: 12:52 kb 04/02 11:36 Order name: Test, Urine; Complete Time: 12:26 kb 04/02 11:36 Order name: Urinalysis w/ reflexes; Complete Time: 12:26 kb 04/02 11:36 Order name: CT Abd/Pelvis - IV Contrast Only; Complete Time: 13:42 kb 04/02 11:36 Order name: IV Saline Lock; Complete Time: 12:08 kb 04/02 11:36 Order name: Labs collected and sent; Complete Time: 12:08 kb Administered Medications: 12:16 Drug: Famotidine IVP 20 mg IVP once; dilute with 10 mL 0.9% NaCl; give over 2 minutes me1 Route: IVP; Site: right antecubital; 12:57 Follow up: Response: No adverse reaction me1 12:16 Drug: NS 0.9% IV 1000 ml IV at 1 bolus Per protocol; to be given as a bolus over 60 me1 minutes Route: IV; Rate: 1 bolus; Site: right antecubital; 14:02 Follow up: Response: No adverse reaction; IV Status: Completed infusion; IV Intake: me1 1000ml Disposition Summary: 04/02/24 13:48 Discharge Ordered Notes: Location: Home kb Condition: Stable kb Diagnosis - Rectal bleeding kb Followup: kb - With: Emergency Department - When: As needed - Reason: Worsening of condition Followup: kb - With: Private Physician - When: 2 - 3 days - Reason: Recheck today's complaints, Continuance of care, Re-evaluation by your physician Discharge Instructions: - Discharge Summary Sheet kb - Rectal Bleeding, [id number] kb Forms: - Medication Reconciliation Form kb - Antibiotic Education kb - Prescription Opioid Use kb - Patient Portal Instructions kb - Leadership Thank You Letter kb Prescriptions: - Protonix 40 mg Oral Tablet - take 1 tablet ORAL route once daily; 30 tablet; Refills: 0, Product Selection kb Permitted Addendum: 04/04/2024 17:55 I was immediately available for consultation during this patient's visit. I did not e c2 personally see the patient or discuss the patient with the ZULEYKA. . Signatures: Dispatcher [employer] Paris López, JESUS MANUEL BOLDEN-Kavon Schmidt RN RN ll1 Melissa Clay RN RN me1 Jarret Retana MD MD ec2
[2024-04-02 14:50] VITALS: BP 112/81; TEMP 98.2; O2SAT 100
== END 2024-04-02 14:02 | disposition home or self-care (01) ==
LOC: ER 11:17
DX: K62.5 Hemorrhage of anus and rectum (principal)
CPT/HCPCS: 36415; 74177; 80053; 81001; 81025; 83690; 85025; J7030; Q9967